=== PATIENT | male | born 1980 | race Caucasian/White ===

== ENCOUNTER 2023-02-13 09:45 | Outpatient (CLI) | payer BC, SELFPAY | END 2023-02-13 09:46 | disposition home or self-care (01) | LOC: LONREF 09:46 | PROVIDERS: PCP Family Medicine; Visit Provider Family Medicine | DX: Z00.00 Encounter for general adult medical examination without abnormal findings (principal); E78.5 Hyperlipidemia, unspecified | CPT/HCPCS: 80061 ==

== ENCOUNTER 2024-02-12 09:28 | Outpatient (CLI) | payer BC, SELFPAY | END 2024-02-12 09:29 | disposition home or self-care (01) | PROVIDERS: PCP Family Medicine; Visit Provider Family Medicine | DX: E78.5 Hyperlipidemia, unspecified (principal); E78.00 Pure hypercholesterolemia, unspecified; Z13.1 Encounter for screening for diabetes mellitus | CPT/HCPCS: 80048; 80061 ==

== ENCOUNTER 2025-03-01 10:45 | Outpatient (CLI) | payer BC, SELFPAY | END 2025-03-01 10:46 | disposition home or self-care (01) | PROVIDERS: PCP Family Medicine; Visit Provider Family Medicine | DX: E78.00 Pure hypercholesterolemia, unspecified (principal); Z13.1 Encounter for screening for diabetes mellitus | CPT/HCPCS: 80048; 80061 ==